=== PATIENT | male | born 2000 | race Caucasian/White ===

== ENCOUNTER 2018-02-23 21:32 | Emergency (ER) | payer BC ==
[2018-02-23] MEDS: LIDOCAINE/MYLANTA 40 ML BTL PO (22:09)
[2018-02-23] MEDS: ONDANSETRON (ODT) 4 MG TAB ODT (22:09)
[2018-02-23 22:34] LABS: ADD UMIC YES; UR ASCORBIC ACID NEGATIVE (NEGATIVE); UR BILIRUBIN (Dip) NEGATIVE (NEGATIVE); UR BLOOD (Dip) NEGATIVE (NEGATIVE); UR CLARITY CLEAR (CLEAR); UR COLOR YELLOW (YELLOW); UR GLUCOSE (Dip) NEGATIVE (NEGATIVE); UR KETONES (Dip) 1+ mg/dL (NEGATIVE); UR LEUKOCYTE ESTERASE (Dip) TRACE Leu/ul (NEGATIVE); UR MUCUS FEW /HPF (NONE SEEN); UR NITRITE (Dip) NEGATIVE (NEGATIVE); UR RBC 0 /HPF (0-5); UR SPECIFIC GRAVITY (Dip) 1.021 (1.003-1.030); UR TOTAL PROTEIN (Dip) NEGATIVE (NEGATIVE); UR UROBILINOGEN (Dip) NEGATIVE (NEGATIVE); UR WBC 2 /HPF (0-5)
== END 2018-02-23 23:20 | disposition home or self-care (01) ==
LOC: FTE 21:32
DX: K29.70 Gastritis, unspecified, without bleeding (principal)
CPT/HCPCS: 74018; 81001; 99284-25

== ENCOUNTER 2019-01-16 13:43 | Emergency (ER) | payer BC ==
[2019-01-16] MEDS: LIDOCAINE/MYLANTA 40 ML BTL PO (15:32)
== END 2019-01-16 16:49 | disposition home or self-care (01) ==
LOC: FTE 13:43
DX: R14.0 Abdominal distension (gaseous) (principal)
CPT/HCPCS: 99282

== ENCOUNTER 2019-04-23 23:47 | Emergency (ER) | payer BC ==
[2019-04-24] MEDS: ONDANSETRON 4 MG INJ IV (04:08)
[2019-04-24] MEDS: FAMOTIDINE 20 MG INJ IV (04:08)
[2019-04-24] MEDS: LIDOCAINE/MYLANTA 40 ML BTL PO (04:09)
[2019-04-24] MEDS: SOD CHLORIDE 0.9% 1,000 ML IV (04:11)
[2019-04-24] MEDS: LORAZEPAM 2 MG INJ IV (04:21)
[2019-04-24 04:24] LABS: ADD MAN DIFF? NO
[2019-04-24 04:25] LABS: WHITE BLOOD COUNT 7.6 10^3/ul (4.8-10.8)
[2019-04-24 04:25] LABS: BASOPHILS % 0.4 % (0.0-2.0); EOSINOPHILS # 0.1 10^3/ul (0.0-0.5); HEMATOCRIT 44.8 % (42.0-52.0); HEMOGLOBIN 15.4 g/dl (14.0-18.0); LYMPHOCYTES # 2.2 10^3/ul (0.8-2.9); LYMPHOCYTES % 28.7 % (15.0-51.0); MEAN CORPUSCULAR HEMOGLOBIN 29.6 pg (29.0-33.0); MEAN CORPUSCULAR HGB CONC 34.4 g/dl (32.0-37.0); MEAN PLATELET VOLUME 9.7 fl (7.4-10.4); MONOCYTE # 0.5 10^3/ul (0.3-0.9); MONOCYTES % 5.9 % (0.0-11.0); NEUTROPHIL # 4.9 10^3/ul (1.6-7.5); NEUTROPHILS % 63.9 % (39.0-77.0); PLATELET COUNT 256 10^3/UL (140-415); RED BLOOD COUNT 5.21 10^6/ul (4.70-6.10); RED CELL DISTRIBUTION WIDTH 11.6 % (11.5-14.5)
[2019-04-24 04:48] LABS: ALANINE AMINOTRANSFERASE 30 IU/L (13-69); ALBUMIN 5.3 g/dl (3.3-4.9); ALBUMIN/GLOBULIN RATIO 1.47; ALKALINE PHOSPHATASE 66 IU/L (42-121); ANION GAP 19 (5-13); ASPARTATE AMINO TRANSFERASE 27 IU/L (15-46); BILIRUBIN,INDIRECT 2.2 mg/dl (0-1.1); BILIRUBIN,TOTAL 2.2 mg/dl (0.2-1.3); BLOOD UREA NITROGEN 16 mg/dl (7-20); CALCIUM 10.5 mg/dl (8.4-10.2); CARBON DIOXIDE 23 mmol/L (21-31); CHLORIDE 105 mmol/L (97-110); CREATININE 0.79 mg/dl (0.61-1.24); Estimated GFR > 60 mL/min (>60); GLUCOSE 96 mg/dl (70-220); LIPASE 136 U/L (23-300); POTASSIUM 3.9 mmol/L (3.5-5.1); SODIUM 147 mmol/L (135-144); TOTAL PROTEIN 8.9 g/dl (6.1-8.1)
== END 2019-04-24 05:52 | disposition home or self-care (01) ==
LOC: FTE 23:47
DX: K29.40 Chronic atrophic gastritis without bleeding (principal); F41.9 Anxiety disorder, unspecified
CPT/HCPCS: 36415; 80053; 83690; 85025; 96374; 96375; 99284-25